=== PATIENT | male | born 1955 | race Caucasian/White ===

== ENCOUNTER 2017-09-29 15:36 | Observation (INO) | payer BC, OTHER ==
[~2017-09-29] VITALS: Ht 170.2 cm; Wt 95.3 kg
[~2017-09-29 15:36] MED LIST: ADVIN25050 INH; EFF375 PO; FLNIN NAE; PRT/20 PO
[2017-09-29] MEDS ORDERED: NITROGLYCERIN 0.4 MG SL PER TAB CHARGE SL STA (15:48)
[2017-09-29] MEDS ORDERED: SODIUM CHLORIDE 0.9% 1000ML 1,000 ML IV STA (15:48)
[2017-09-29] MEDS ORDERED: ASPIRIN 81 MG CHEW PO STA (15:48)
--- NOTE | 2017-09-29 15:57 | EMERGENCY ROOM VISIT NOTE ---
History Report prepared by Radha: Yelena Donahue Under the Supervision of: Dr. Shane Kenyon M.D. First contact with patient: 15:43 Chief Complaint: CHEST PAIN Stated Complaint: CHEST PAIN, LIGHT HEADED History of Present Illness The patient is a 62 year old male who presents to the Emergency Room with complaints of constant chest pain beginning at 1300 today. He describes the pain as dull and rates it as a 3/10 in severity. Pain is located substernally. No radiation of the pain. Patient also reports being lightheaded. No shortness of breath. The patient denies any urinary symptoms or headaches. He denies any recent travel, recent trauma, or smoking. He reports he took his very first blood pressure medication today. His family physician is [facility] Jones. Source of History: patient Onset: 1300 today Position: chest Symptom Intensity: 3/10 Timing: constant Associated Symptoms: No headache, No urinary symptoms Note: Positive lightheadedness. Negative recent travel, recent trauma, or smoking. Negative pain traveling anywhere. Review of Systems See HPI for pertinent positives and negatives. A total of ten systems were reviewed and were otherwise negative. Past Medical & Surgical Medical Problems: (1) Chest pain Family History Stent Social History Smoking Status: Never Smoker Smokeless Tobacco Use: Unknown Current/Historical Medications Scheduled Esomeprazole Magnesium (Nexium), 1 CAP PO DAILY Finasteride (Proscar), 5 MG PO DAILY Fluticasone Propionate (Flonase Nasal [place] *), 2 SPRAYS KEENA DAILY Losartan Potassium (Cozaar), 50 MG PO DAILY Mometasone Furoate-Formoterol (Dulera 100/5 Mcg), 2 PUFFS INH BID Multivitamin (Multivitamin), 1 TAB PO DAILY Allergies Coded Allergies: No Known Allergies (Unverified , 09/29/17) Physical Exam Vital Signs Date Time Temp Pulse Resp B/P (MAP) Pulse Ox O2 Delivery O2 Flow Rate FiO2 09/29/17 18:10 130/80 09/29/17 17:10 123/76 09/29/17 17:06 75 14 100 09/29/17 17:05 111/78 09/29/17 17:00 118/81 09/29/17 16:55 114/79 09/29/17 16:50 121/76 09/29/17 16:45 121/75 09/29/17 16:40 111/73 09/29/17 16:36 81 15 97 09/29/17 16:35 109/74 09/29/17 16:30 106/76 09/29/17 16:29 114/67 09/29/17 16:26 81 16 109/70 94 Nasal Cannula 2.0 09/29/17 16:25 109/70 09/29/17 16:20 104/59 09/29/17 16:20 74 16 104/59 98 Nasal Cannula 2.0 09/29/17 16:19 66 16 86/47 98 Room Air 09/29/17 16:18 68 16 70/41 96 Room Air 09/29/17 16:18 Nasal Cannula 2.0 09/29/17 16:18 86/47 09/29/17 16:17 70/41 09/29/17 16:16 95 20 108/83 92 Room Air 09/29/17 16:15 101 09/29/17 16:15 108/83 09/29/17 16:09 Room Air 09/29/17 16:09 87 16 140/89 09/29/17 16:06 93 19 09/29/17 16:03 140/89 09/29/17 15:43 36.4 96 20 133/78 96 Room Air Physical Exam Physical Exam GENERAL: He is oriented to person, place, and time. He appears well-developed and well-nourished. He does not appear distressed. ____ HENT: Exam performed. Head: Normocephalic and atraumatic. Right Ear: External ear normal. No mastoid tenderness. Left Ear: External ear normal. No mastoid tenderness. Mouth/Throat: The oropharynx is clear and moist. No trismus in the jaw. No dental abscesses or uvula swelling. No oropharyngeal exudate or tonsillar abscesses. ____ EYES: Conjunctivae and EOM are normal. Pupils are equal, round, and reactive to light. Right eye exhibits no discharge. Left eye exhibits no discharge. No scleral icterus. ____ NECK: Normal range of motion. Neck supple. No JVD present. No spinous process tenderness present. No carotid bruit present. No rigidity. No tracheal deviation and normal range of motion present. No Brudzinski's sign and no Kernig 's sign noted. ____ CV: Normal rate, regular rhythm, normal heart sounds and intact distal pulses. There is no peripheral edema. Palpable radial pulses bue. ____ PULM/CHEST: Effort normal and breath sounds normal. No respiratory distress. No stridor. He has no wheezes. He has no rales. Chest Wall: He exhibits no tenderness. ____ ABD: The abdomen is soft. Bowel sounds are normal. He has no distension. No mass is present. There is no tenderness. There is no rebound, no guarding, no Mustafa's sign and no tenderness at McBurney's point. Rovsig negative MUSC/SKEL: Normal range of motion. There is no peripheral edema, tenderness or deformity. LYMPH: No cervical adenopathy. ____ NEURO: He is alert and oriented to person, place, and time. He has normal strength. No cranial nerve deficit or sensory deficit. Coordination and gait normal. GCS eye subscore is 4. GCS verbal subscore is 5. GCS motor subscore is 6. Cerebellar tests wnl. ____ SKIN: Skin is warm and dry. He is not diaphoretic. ____ PSYCH: He has a normal mood and affect. His behavior is normal. Judgment and thought content normal. ____ Medical Decision & Procedures ER Provider Diagnostic Interpretation: Radiology results as stated below per my review and radiologist interpretation: CHEST 2 VIEWS ROUTINE HISTORY: Atypical chest pain. COMPARISON: Chest 10/28/2009. FINDINGS: Mild anterior wedging at T12, unchanged. The lungs are clear. The heart is normal in size. No pleural effusions. No pneumothorax. IMPRESSION: No significant change compared to the prior study. No acute process. Electronically signed by: Froylan Pepoles M.D. 09/29/2017 5:39 PM Dictated Date/Time: 09/29/2017 5:36 PM Laboratory Results 09/29/17 16:15 Red Blood Count 4.95, Mean Corpuscular Volume 88.7, Mean Corpuscular Hemoglobin 32.1, Mean Corpuscular Hemoglobin Concent 36.2, Mean Platelet Volume 9.8, Neutrophils (%) (Auto) 65.7, Lymphocytes (%) (Auto) 23.9, Monocytes (%) (Auto) 8.8, Eosinophils (%) (Auto) 1.3, Basophils (%) (Auto) 0.0, Neutrophils # (Auto) 4.19, Lymphocytes # (Auto) 1.52, Monocytes # (Auto) 0.56, Eosinophils # (Auto) 0.08, Basophils # (Auto) 0.00 09/29/17 16:15 Test 09/29/17 16:15 White Blood Count 6.37 K/uL (4.8-10.8) Red Blood Count 4.95 M/uL (4.7-6.1) Hemoglobin 15.9 g/dL (14.0-18.0) Hematocrit 43.9 % (42-52) Mean Corpuscular Volume 88.7 fL (80-100) Mean Corpuscular Hemoglobin 32.1 pg (25-34) Mean Corpuscular Hemoglobin Concent 36.2 g/dl (32-36) Platelet Count 183 K/uL (130-400) Mean Platelet Volume 9.8 fL (7.4-10.4) Neutrophils (%) (Auto) 65.7 % Lymphocytes (%) (Auto) 23.9 % Monocytes (%) (Auto) 8.8 % Eosinophils (%) (Auto) 1.3 % Basophils (%) (Auto) 0.0 % Neutrophils # (Auto) 4.19 K/uL (1.4-6.5) Lymphocytes # (Auto) 1.52 K/uL (1.2-3.4) Monocytes # (Auto) 0.56 K/uL (0.11-0.59) Eosinophils # (Auto) 0.08 K/uL (0-0.5) Basophils # (Auto) 0.00 K/uL (0-0.2) RDW Standard Deviation 44.6 fL (36.4-46.3) RDW Coefficient of Variation 13.7 % (11.5-14.5) Immature Granulocyte % (Auto) 0.3 % Immature Granulocyte # (Auto) 0.02 K/uL (0.00-0.02) Prothrombin Time 10.0 SECONDS (9.0-12.0) Prothromb Time International Ratio 1.0 (0.9-1.1) Activated Partial Thromboplast Time 25.2 SECONDS (21.0-31.0) Partial Thromboplastin Ratio 1.0 Anion Gap 3.0 mmol/L (3-11) Est Creatinine Clear Calc Drug Dose 91.5 ml/min Estimated GFR () 100.4 Estimated GFR (Non- 86.7 BUN/Creatinine Ratio 23.3 (10-20) Calcium Level 8.8 mg/dl (8.5-10.1) Troponin I < 0.015 ng/ml (0-0.045) Laboratory results reviewed by me Medications Administered Medications (Trade) Dose Ordered Sig/Bertha Route Start Time Stop Time Status Last Admin Dose Admin Nitroglycerin (Nitrostat Tab) 0.4 mg NOW STAT SL 09/29/17 15:48 09/29/17 15:53 DC 09/29/17 15:48 0.4 MG Aspirin (Aspirin Chew) 324 mg NOW STAT PO 09/29/17 15:48 09/29/17 15:53 DC 09/29/17 16:08 324 MG Sodium Chloride 1,000 ml @ 125 mls/hr Q8H STAT IV 09/29/17 15:48 09/29/17 23:47 09/29/17 15:48 125 MLS/HR ECG Per My Interpretation Indication: chest pain Rate (beats per minute): 92 Rhythm: sinus rhythm Findings: other (SC, QRS, QTC all within normal limits, no ST elevation or depression ) Change: Repeat EKG at 1653 shows sinus rhythm, 77, SC, QRS, and QTC within normal limits , no ST elevation or depression ED Course 1547: The patient was evaluated in room C3. A complete history and physical exam was performed. 1548: Ordered Sodium Chloride 1000 ml @ 125 mls/hr IV Aspirin 324 mg PO Nitroglycerin 0.4 mg SL 1615: Status post nitroglycerin administration, the patient states his pain got better but subsequently developed hypotension which was alleviated with an IV drip. 1645: Currently the patients blood pressure has normalized and states the nitroglycerin did take his pain away but now the pain is starting to come back and rates it as a 2/10 in severity. Will hold off on nitroglycerin at this point to avoid repeat transient hypotension. 1815: Vital signs are stable. Labs and I within normal limits. Given the patients age, family medical history, and his medical history, and his resolvent of pain status post 1 sublingual nitro, will admit the patient to rule out ACS . [facility] Hospitalist will further evaluate the patient Medical Decision Vital signs are stable. Labs and I within normal limits. Given the patients age , family medical history, and his medical history, and his resolvent of pain status post 1 sublingual nitro, will admit the patient to rule out ACS . [facility] Hospitalist will further evaluate the patient Medication Reconcilliation Current Medication List: was personally reviewed by me Blood Pressure Screening Patient's blood pressure: Normal blood pressure Blood pressure disposition: Did not require urgent referral Consults Time Called: 1813 Returned Call: [phone] [facility] Hospitalist will further evaluate the patient Impression Primary Impression: Chest pain Scribe Attestation The scribe's documentation has been prepared under my direction and personally reviewed by me in its entirety. I confirm that the note above accurately reflects all work, treatment, procedures, and medical decision making performed by me. The chart was completed utilizing [email or web address] Speech voice recognition software. Grammatical errors, random word insertions, pronoun errors, and incomplete sentences are an occasional consequence of this system due to software limitations, ambient noise, and hardware issues. Any formal questions or concerns about the content, text, or information contained within the body of this dictation should be directly addressed to the physician for clarification. Departure Information Dispostion Being Evaluated By Hospitalist ([facility] Hospitalist ) Referrals Beth Bashir M.D. (PCP) Patient Instructions [facility] Problem Qualifiers Primary Impression: Chest pain Chest pain type: unspecified Qualified Codes: R07.9 - Chest pain, unspecified
[2017-09-29 16:22] LABS: EOS % 1.3 %; EOS ABS # 0.08 K/uL (0-0.5); HEMATOCRIT 43.9 % (42-52); HEMOGLOBIN 15.9 g/dL (14.0-18.0); IG# 0.02 K/uL (0.00-0.02); LYMPH % 23.9 %; LYMPH ABS # 1.52 K/uL (1.2-3.4); MEAN CELL VOLUME 88.7 fL (80-100); MEAN CORPUSCULAR HEMOGLOBIN 32.1 pg (25-34); MEAN CORPUSCULAR HGB CONC 36.2 g/dl (32-36); MEAN PLATELET VOLUME 9.8 fL (7.4-10.4); MONO % 8.8 %; MONO ABS # 0.56 K/uL (0.11-0.59); NEUT % 65.7 %; NEUT ABS # 4.19 K/uL (1.4-6.5); PLATELET COUNT 183 K/uL (130-400); RED CELL DISTRIBUTION WIDTH CV 13.7 % (11.5-14.5); RED CELL DISTRIBUTION WIDTH SD 44.6 fL (36.4-46.3); WHITE BLOOD COUNT 6.37 K/uL (4.8-10.8)
[2017-09-29 16:45] LABS: BLOOD UREA NITROGEN 22 mg/dl (7-18); CALCIUM 8.8 mg/dl (8.5-10.1); CARBON DIOXIDE 26 mmol/L (21-32); CREATININE 0.95 mg/dl (0.60-1.40); GLUCOSE 96 mg/dl (70-99); POTASSIUM 4.2 mmol/L (3.5-5.1); SODIUM 136 mmol/L (136-145)
[2017-09-29] MEDS ORDERED: LOSA50TA6 PO (16:49)
[2017-09-29] MEDS ORDERED: MULT-506 PO (16:49)
[2017-09-29] MEDS ORDERED: FINA5TAB PO (16:49)
--- NOTE | 2017-09-29 17:40 | DIAGNOSTIC IMAGING REPORT ---
CHEST 2 VIEWS ROUTINE HISTORY: Atypical chest pain. COMPARISON: Chest 10/28/2009. FINDINGS: Mild anterior wedging at T12, unchanged. The lungs are clear. The heart is normal in size. No pleural effusions. No pneumothorax. IMPRESSION: No significant change compared to the prior study. No acute process. Electronically signed by: Froylan Peoples M.D. 09/29/2017 5:39 PM Dictated Date/Time: 09/29/2017 5:36 PM
[2017-09-29] MEDS ORDERED: NXM/40 PO (18:38)
[2017-09-29] MEDS ORDERED: MOME100A INH (18:38)
[2017-09-29] MEDS ORDERED: ONDANSETRON INJ 2 MG/ML 2 ML VIAL IV PRN (18:45)
[2017-09-29] MEDS ORDERED: ACETAMINOPHEN 325 MG TAB PO PRN (18:45)
--- NOTE | 2017-09-29 19:13 | History and Physical ---
History & Physical Date & Time of Service: Sep 29, 2017 at 18:59 Chief Complaint: Chest Pain, Light Headed Primary Care Physician: Beth Bashir M.D. History of Present Illness Source: patient, family, clinic records This is a 62 year old male with a past medical history of GERD, depression, prediabetes, hydrocele, recent diagnosis of hypertension - presents with substernal chest pain. States he started Cozaar this morning (first dose) and he felt somewhat dizzy. He sat down and felt better. Later in the day he noted a substernal chest pain, non-radiating, denies shortness of breath; no associated symptoms. Presented to the ER and given SL nitro with some improvement. He developed some hypotension after being given nitro, but now feels better. States he has a family history of cardiac issues; maternal side with multiple coronary issues, paternal side with history of stroke issues. As per , patient is more stressed these days. At one time, patient was taking Paxil, then switched to Effexor, then tapered off. Patient's concerned about depression; patient states he may need a medication to help him with stress. Past Medical/Surgical History Medical Problems: (1) Chest pain Family History Stent Social History Smoking Status: Never Smoker Smokeless Tobacco Use: Unknown Allergies Coded Allergies: No Known Allergies (Unverified , 09/29/17) Home Medications Scheduled Esomeprazole Magnesium (Nexium), 1 CAP PO DAILY Finasteride (Proscar), 5 MG PO DAILY Fluticasone Propionate (Flonase Nasal [place] *), 2 SPRAYS KEENA DAILY Losartan Potassium (Cozaar), 50 MG PO DAILY Mometasone Furoate-Formoterol (Dulera 100/5 Mcg), 2 PUFFS INH BID Multivitamin (Multivitamin), 1 TAB PO DAILY Review of Systems Constitutional: No fever, No chills, No weakness, No fatigue Respiratory: No cough, No sputum, No wheezing, No shortness of breath, No dyspnea on exertion, No dyspnea at rest, No hemoptysis Cardiovascular: + chest pain, No edema, No palpitations Abdomen: No pain, No nausea, No vomiting, No diarrhea, No constipation, No GI bleeding Musculoskeletal: No joint pain, No muscle pain Genitourinary - Male: + problem reported, No hematuria, No dysuria, No urinary frequency, No urinary urgency, No urinary hesitancy Neurologic: No weakness, No numbness/tingling, No vertigo, No balance problems Psychiatric: + depression symptoms, No anxiety, No insomnia Endocrine: No fatigue Hematologic / Lymphatic: No abnormal bleeding/bruising Integumentary: No rash Allergic / Immunologic: No environmental allergies, No seasonal allergies Physical Exam Vital Signs Date Time Temp Pulse Resp B/P (MAP) Pulse Ox O2 Delivery O2 Flow Rate FiO2 09/29/17 18:10 130/80 09/29/17 17:10 123/76 09/29/17 17:06 75 14 100 09/29/17 17:05 111/78 09/29/17 17:00 118/81 09/29/17 16:55 114/79 09/29/17 16:50 121/76 09/29/17 16:45 121/75 09/29/17 16:40 111/73 09/29/17 16:36 81 15 97 09/29/17 16:35 109/74 09/29/17 16:30 106/76 09/29/17 16:29 114/67 09/29/17 16:26 81 16 109/70 94 Nasal Cannula 2.0 09/29/17 16:25 109/70 09/29/17 16:20 104/59 09/29/17 16:20 74 16 104/59 98 Nasal Cannula 2.0 09/29/17 16:19 66 16 86/47 98 Room Air 09/29/17 16:18 68 16 70/41 96 Room Air 09/29/17 16:18 Nasal Cannula 2.0 09/29/17 16:18 86/47 09/29/17 16:17 70/41 09/29/17 16:16 95 20 108/83 92 Room Air 09/29/17 16:15 101 09/29/17 16:15 108/83 09/29/17 16:09 Room Air 09/29/17 16:09 87 16 140/89 09/29/17 16:06 93 19 09/29/17 16:03 140/89 09/29/17 15:43 36.4 96 20 133/78 96 Room Air General Appearance: WD/WN, no apparent distress Head: normocephalic, atraumatic Eyes: normal inspection ENT: normal ENT inspection, hearing grossly normal, TMs normal, pharynx normal Neck: supple Respiratory/Chest: chest non-tender, lungs clear, normal breath sounds, no respiratory distress, no accessory muscle use Cardiovascular: regular rate, rhythm, no edema, no gallop, no JVD, no murmur, normal peripheral pulses Abdomen/GI: normal bowel sounds, non tender, soft Back: normal inspection, no CVA tenderness, no muscle spasm, normal range of motion Extremities/Musculoskelatal: normal inspection, no calf tenderness, normal capillary refill, no pedal edema, normal range of motion Neurologic/Psych: arnp II-XII nml as tested, no motor/sensory deficits, alert, normal mood/affect, normal reflexes, oriented x 3 Skin: normal color, warm/dry, no rash Lymphatic: no adenopathy Diagnostics Laboratory Results Results Past 24 Hours Test 09/29/17 16:15 Range/Units White Blood Count 6.37 4.8-10.8 K/uL Red Blood Count 4.95 4.7-6.1 M/uL Hemoglobin 15.9 14.0-18.0 g/dL Hematocrit 43.9 42-52 % Mean Corpuscular Volume 88.7 80-100 fL Mean Corpuscular Hemoglobin 32.1 25-34 pg Mean Corpuscular Hemoglobin Concent 36.2 32-36 g/dl Platelet Count 183 130-400 K/uL Mean Platelet Volume 9.8 7.4-10.4 fL Neutrophils (%) (Auto) 65.7 % Lymphocytes (%) (Auto) 23.9 % Monocytes (%) (Auto) 8.8 % Eosinophils (%) (Auto) 1.3 % Basophils (%) (Auto) 0.0 % Neutrophils # (Auto) 4.19 1.4-6.5 K/uL Lymphocytes # (Auto) 1.52 1.2-3.4 K/uL Monocytes # (Auto) 0.56 0.11-0.59 K/uL Eosinophils # (Auto) 0.08 0-0.5 K/uL Basophils # (Auto) 0.00 0-0.2 K/uL RDW Standard Deviation 44.6 36.4-46.3 fL RDW Coefficient of Variation 13.7 11.5-14.5 % Immature Granulocyte % (Auto) 0.3 % Immature Granulocyte # (Auto) 0.02 0.00-0.02 K/uL Sodium Level 136 136-145 mmol/L Potassium Level 4.2 3.5-5.1 mmol/L Chloride Level 107 98-107 mmol/L Carbon Dioxide Level 26 21-32 mmol/L Anion Gap 3.0 3-11 mmol/L Blood Urea Nitrogen 22 7-18 mg/dl Creatinine 0.95 0.60-1.40 mg/dl Est Creatinine Clear Calc Drug Dose 91.5 ml/min Estimated GFR () 100.4 Estimated GFR (Non- 86.7 BUN/Creatinine Ratio 23.3 10-20 Random Glucose 96 70-99 mg/dl Calcium Level 8.8 8.5-10.1 mg/dl Troponin I < 0.015 0-0.045 ng/ml Diagnostic Radiology CHEST 2 VIEWS ROUTINE HISTORY: Atypical chest pain. COMPARISON: Chest 10/28/2009. FINDINGS: Mild anterior wedging at T12, unchanged. The lungs are clear. The heart is normal in size. No pleural effusions. No pneumothorax. IMPRESSION: No significant change compared to the prior study. No acute process. EKG Normal sinus rhythm Normal ECG Impression Assessment and Plan This is a 62 year old male with a past medical history of GERD, depression, prediabetes, hydrocele, recent diagnosis of hypertension - presents with substernal chest pain. Chest Pain rule out ACS - risk factors: prediabetes, HTN, family hx. - other possibilities include stress, reflux - EKG with no ST-T wave changes, troponin negative x1 - will trend enzymes, check resting echo - cardiology consultation - outpatient vs. inpatient stress - started on aspirin - check fasting lipid panel HTN - blood pressure labile - hold Cozaar and monitor vitals GERD - takes nexium at home, will give Protonix here Depression - now off of medications - and patient both agree that started medication would be beneficial due to stress - will await cardiac w/up, then perform a PHQ-2 and 9 R sided Hydrocele - outpatient follow-up with Dr. Robledo, urology, on October 05 DVT ppx - Lovenox FULL CODE Resuscitation Status VTE Prophylaxis Will order VTE Prophylaxis: Yes
[2017-09-29] MEDS ORDERED: IV FLUIDS COMPLETED PRN (19:30)
[2017-09-29 20:00] VITALS: BP 146/83; PULSE 77; TEMP 36.4; O2SAT 94; Ht 170.2 cm; Wt 95.3 kg
[2017-09-29 20:00] LABS: PTT PATIENT 25.2 SECONDS (21.0-31.0)
[2017-09-29] MEDS ORDERED: ENOXAPARIN 40 MG/0.4 ML SYR SC SCH (21:00)
[2017-09-29] MEDS ORDERED: SODIUM CHLORIDE 0.9% 1000ML 1,000 ML IV SCH (23:00)
[2017-09-29 23:30] VITALS: BP 134/83; PULSE 71; TEMP 37.1; O2SAT 97
[2017-09-30 03:30] VITALS: BP 126/78; PULSE 76; TEMP 37.1; O2SAT 97
[2017-09-30 06:38] LABS: HEMATOCRIT 44.2 % (42-52); HEMOGLOBIN 15.5 g/dL (14.0-18.0); MEAN CELL VOLUME 89.5 fL (80-100); MEAN CORPUSCULAR HEMOGLOBIN 31.4 pg (25-34); MEAN CORPUSCULAR HGB CONC 35.1 g/dl (32-36); MEAN PLATELET VOLUME 9.8 fL (7.4-10.4); PLATELET COUNT 180 K/uL (130-400); RED CELL DISTRIBUTION WIDTH CV 13.7 % (11.5-14.5); RED CELL DISTRIBUTION WIDTH SD 45.2 fL (36.4-46.3); WHITE BLOOD COUNT 8.03 K/uL (4.8-10.8)
[2017-09-30 07:10] LABS: BLOOD UREA NITROGEN 17 mg/dl (7-18); CALCIUM 8.4 mg/dl (8.5-10.1); CARBON DIOXIDE 25 mmol/L (21-32); CREATININE 0.85 mg/dl (0.60-1.40); GLUCOSE 109 mg/dl (70-99); SODIUM 137 mmol/L (136-145)
[2017-09-30 07:16] LABS: CHOLESTEROL 145 mg/dl (0-200); LDL CHOLESTEROL CALCULATED 82 mg/dl
[2017-09-30 08:38] VITALS: BP 129/88; PULSE 71; O2SAT 96
[2017-09-30] MEDS ORDERED: PANTOprazole SOD 40 MG TAB PO SCH (09:00)
[2017-09-30] MEDS ORDERED: ASPIRIN 81 MG ECTAB PO SCH (09:00)
--- NOTE | 2017-09-30 10:11 | ECHOCARDIOGRAM REPORT ---
*NOTICE TO RECEIVING CONSTITUTION PARTY AGENCY This information is strictly Confidential and protected under [place] law. [place] law prohibits you from making any further disclosure of this information unless further disclosure is expressly permitted by the written consent of the person to whom it pertains or is authorized by law. A general authorization for the release of medical or other information is not sufficient for this purpose. Hospital accepts no responsibility if the information is made available to any other person, INCLUDING THE PATIENT. Interpretation Summary * Name: PA WORLEY Study Date: 09/30/2017 07:44 AM BP: 126/78 mmHg * Patient Location: C.2E\S\E201\S\1 HR: 76 * : 1955 (M/d/yyyy) Gender: Male Height: 67 in * Age: 62 yrs Ethnicity: [place] Weight: 212 lb * Ordering Physician: Phylicia Howe * Referring Physician: Self, Referred * Performed By: Janice Elias RCS * * Reason For Study: CHEST PAIN * BSA: 2.1 m2 * The study was technically adequate. * -- Conclusions -- * There is normal left ventricular wall thickness. * The left ventricular wall motion is normal. * The calculated biplane left ventricular ejection fraction =58% (normal). * Grade I diastolic dysfunction, (abnormal relaxation pattern). * There is no significant valvular heart disease. Procedure Details * A complete two-dimensional transthoracic echocardiogram was performed (2D, M-mode, Doppler and color flow Doppler). Left Ventricle * The left ventricle is normal in size. * There is normal left ventricular wall thickness. * Left ventricular systolic function is normal. * The calcuted biplane left ventricular ejection fraction =58% (normal). * The left ventricular wall motion is normal. Right Ventricle * The right ventricle is normal size. * The right ventricular systolic function is normal as assessed by tricuspid annular plane systolic excursion (TAPSE) (normal >1.5 cm). Atria * The left atrial size is normal. * Right atrial size is normal. * There is no evidence of atrial septal defect, but resolution does not allow assessment for a patent foramen ovale. Mitral Valve * The mitral valve is normal. * There is no mitral valve stenosis. * Significant mitral regurgitation is absent. Tricuspid Valve * The tricuspid valve is normal. * There is no tricuspid stenosis. * Significant tricuspid regurgitation is absent. * Right ventricular systolic pressure is normal. Aortic Valve * The aortic valve is trileaflet. * Aortic stenosis is absent. * There is no significant aortic regurgitation. Pulmonic Valve * The pulmonary valve is not well seen, but the Doppler examination is normal without significant regurgitation or stenosis. Great Vessels * The aortic root and proximal ascending aorta are normal sized. Pericardium/Pleural * There is no pericardial effusion. Great Vessels * Normal inferior vena cava diameter and respiratory variation suggests normal central venous pressure. * Normal inferior vena cava size and collapsability with sniff indicates a normal right atrial pressure of 3 mmHg Left Ventricular Diastolic Function * Grade I diastolic dysfunction, (abnormal relaxation pattern). MMode 2D Measurements and Calculations IVSd 1.1 cm IVSs 1.4 cm LVIDd 3.7 cm LVIDs 2.1 cm LVPWd 1.1 cm LVPWs 1.7 cm IVS/LVPW 1.0 FS 42.7 % EDV(Teich) 58.7 ml ESV(Teich) 14.9 ml EF(Teich) 74.6 % EDV(cubed) 51.3 ml ESV(cubed) 9.6 ml EF(cubed) 81.2 % % IVS thick 31.1 % % LVPW thick 55.5 % LV mass(C)d 126.7 grams LV mass(C)dI 61.1 grams/m\S\2 LV mass(C)s 111.1 grams LV mass(C)sI 53.6 grams/m\S\2 SV(Teich) 43.8 ml SI(Teich) 21.1 ml/m\S\2 SV(cubed) 41.6 ml SI(cubed) 20.1 ml/m\S\2 Ao root diam 3.4 cm Ao root area 9.2 cm\S\2 ACS 1.9 cm LA dimension 3.9 cm asc Aorta Diam 3.1 cm LA/Ao 1.2 EDV(MOD-sp4) 111.0 ml ESV(MOD-sp4) 45.0 ml EF(MOD-sp4) 59.5 % EDV(MOD-sp2) 120.0 ml ESV(MOD-sp2) 52.0 ml EF(MOD-sp2) 56.7 % SV(MOD-sp4) 66.0 ml SI(MOD-sp4) 31.8 ml/m\S\2 SV(MOD-sp2) 68.0 ml SI(MOD-sp2) 32.8 ml/m\S\2 Doppler Measurements and Calculations MV E max remy 85.2 cm/sec MV A max remy 98.7 cm/sec MV E/A 0.86 MV P1/2t max remy 94.9 cm/sec MV P1/2t 57.2 msec MVA(P1/2t) 3.8 cm\S\2 MV dec slope 485.9 cm/sec\S\2 MV dec time 0.22 sec Ao V2 max 163.1 cm/sec Ao max PG 10.6 mmHg Ao max PG (full) 4.5 mmHg LV V1 max PG 6.2 mmHg LV V1 max 124.2 cm/sec PA V2 max 126.8 cm/sec PA max PG 6.4 mmHg TR max remy 217.1 cm/sec
--- NOTE | 2017-09-30 10:38 | Cardiology Consultation ---
Cardiology Consultation Date of Consultation: Sep 30, 2017 History of Present Illness Patient is a 62 year old male seen in cardiology consultation per the request of Dr Howe for the evaluation of chest discomfort. 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 He states he was recently diagnosed with hypertension and his primary care provider, Dr. Bashir had recommended starting losartan 25 mg daily. Yesterday, Sunday, he took the new blood pressure medication for the first time. He proceeded to perform yard work and then washed his spouse's car. He noted dizziness. He then went for a walk with his granddaughter, and felt a mild 2-3/10 intensity chest discomfort. The discomfort continued and occurred even when he was resting and laying flat prompting him to ultimately come to the emergency room. He felt that there was some degree of subjective improvement after the administration of sublingual nitroglycerin. Ultimately he was admitted to the telemetry floor and his symptoms subsided overnight. EKG performed on presentation yesterday at 1653 revealed normal sinus rhythm at 77 bpm with normal repolarization. Repeat EKG performed this morning was once again normal. Resting echocardiogram revealed normal biventricular systolic function and no significant wall motion abnormalities. The left ventricular myocardial thickness was normal. No significant valvular heart disease was noted. Troponin levels have been negative 3. The patient was assessed by the undersigned prior to, during, and post exercise stress echocardiogram. This morning he was free of chest discomfort. Past Medical/Surgical History Problem List: Medical Problems: (1) Chest pain History Social History: Patient is a non-smoker. He lives with his family. Family History: His mother at age 82 with a history of heart and lung disease and had a prior history of cardiac stents. His father in his 70s with history of hypertension and bladder carcinoma Review Of Systems See above for pertinent positives & negatives. A total of 10 systems reviewed and were otherwise negative. Allergies Coded Allergies: No Known Allergies (Unverified , 09/29/17) Medications Reported Home Medications Medications Dose Route/Sig Max Daily Dose Days Date Category Dose Instructions Dulera 100/5 Mcg (Mometasone Furoate-Formoterol) 1 Aer Aer 2 Puffs INH BID 30 09/29/17 Reported Nexium (Esomeprazole Magnesium) 40 Mg Cap 1 Cap PO DAILY 30 09/29/17 Reported Multivitamin (Multivitamins) Tab 1 Tab PO DAILY 09/29/17 Reported Proscar (Finasteride) 5 Mg Tab 5 Mg PO DAILY 09/29/17 Reported Cozaar (Losartan Potassium) 50 Mg Tab 50 Mg PO DAILY 09/29/17 Reported pt just started medication today 09/29/17 Flonase Nasal [place] * (Fluticasone Propionate) Inha 2 Sprays KEENA DAILY 01/21/07 Reported Physical Exam Vital Signs (Last 8hrs): Last 8 Hrs Date Time Temp Pulse Resp B/P (MAP) Pulse Ox O2 Delivery O2 Flow Rate FiO2 09/30/17 08:38 71 16 129/88 (102) 96 Room Air 09/30/17 08:30 Room Air 09/30/17 04:00 Room Air 09/30/17 03:30 37.1 76 17 126/78 (94) 97 Room Air General Appearance: Alert and Oriented x3. NAD. Head: Normocephalic Atraumatic. Eyes: PERRLA, EOMI, conjunctiva and sclera clear Neck: Supple. No carotid bruits noted. No JVD. No HJD. Respiratory: Breath sounds clear to auscultation bilaterally. No w/r/r. Cardiovascular: Reg rate and rhythm. S1 and S2 noted. No murmurs, rubs, gallops. PMI non displace. Abdomen: Normal bowel sounds, soft nontender. no abdominal bruits. Extremities: No edema, no clubbing or cyanosis. distal pulses 2/4 bilaterally. Neuro: No focal deficits. Psychiatric: Normal affect. Data Last 24 Hours Test 09/29/17 16:15 09/30/17 00:08 09/30/17 06:20 White Blood Count 6.37 K/uL 8.03 K/uL Red Blood Count 4.95 M/uL 4.94 M/uL Hemoglobin 15.9 g/dL 15.5 g/dL Hematocrit 43.9 % 44.2 % Mean Corpuscular Volume 88.7 fL 89.5 fL Mean Corpuscular Hemoglobin 32.1 pg 31.4 pg Mean Corpuscular Hemoglobin Concent 36.2 g/dl 35.1 g/dl Platelet Count 183 K/uL 180 K/uL Mean Platelet Volume 9.8 fL 9.8 fL Neutrophils (%) (Auto) 65.7 % Lymphocytes (%) (Auto) 23.9 % Monocytes (%) (Auto) 8.8 % Eosinophils (%) (Auto) 1.3 % Basophils (%) (Auto) 0.0 % Neutrophils # (Auto) 4.19 K/uL Lymphocytes # (Auto) 1.52 K/uL Monocytes # (Auto) 0.56 K/uL Eosinophils # (Auto) 0.08 K/uL Basophils # (Auto) 0.00 K/uL RDW Standard Deviation 44.6 fL 45.2 fL RDW Coefficient of Variation 13.7 % 13.7 % Immature Granulocyte % (Auto) 0.3 % Immature Granulocyte # (Auto) 0.02 K/uL Prothrombin Time 10.0 SECONDS Prothromb Time International Ratio 1.0 Activated Partial Thromboplast Time 25.2 SECONDS Partial Thromboplastin Ratio 1.0 Sodium Level 136 mmol/L 137 mmol/L Potassium Level 4.2 mmol/L 4.0 mmol/L Chloride Level 107 mmol/L 108 mmol/L Carbon Dioxide Level 26 mmol/L 25 mmol/L Anion Gap 3.0 mmol/L 4.0 mmol/L Blood Urea Nitrogen 22 mg/dl 17 mg/dl Creatinine 0.95 mg/dl 0.85 mg/dl Est Creatinine Clear Calc Drug Dose 91.5 ml/min 101.7 ml/min Estimated GFR () 100.4 109.8 Estimated GFR (Non- 86.7 94.7 BUN/Creatinine Ratio 23.3 19.4 Random Glucose 96 mg/dl 109 mg/dl Calcium Level 8.8 mg/dl 8.4 mg/dl Troponin I < 0.015 ng/ml < 0.015 ng/ml < 0.015 ng/ml Triglycerides Level 99 mg/dl Cholesterol Level 145 mg/dl HDL Cholesterol 43 mg/dl LDL Cholesterol, Calculated 82 mg/dl VLDL Cholesterol, Calculated 20 mg/dl Cholesterol/HDL Ratio 3.4 EKG as outlined above. Assessment & Plan Impression: 62-year-old male 1. Chest disc 2. Dizziness Discussion/recommendations: Having had negative EKG 2 negative troponin 3, the patient underwent exercise stress echocardiogram achieving an above average peak workload with no EKG or echo cardiographic evidence of resting or inducible ischemia. His symptoms of chest discomfort were not reproduced. The patient only described an appropriate level of exertional shortness of breath with exercise on the treadmill. Based on the stress test results I do not think the symptoms he was exhibiting or due to angina. Perhaps this is musculoskeletal as he had been raking the day before and was doing some physical exertion activities with the warm spring weather that his muscles were not used to. Regarding his hypertension. He did have some low blood pressure readings while hospitalized with systolic blood pressures in the 100 mmHg range transiently overnight. I offered him 1 of 3 options first of which was to discontinue any further blood pressure medication and refer him back to his primary care provider for reassessment. Second would be to cautiously reintroduce his current dose of losartan in 48 hours, and the third option would be to try different agent, perhaps amlodipine 2.5 mg daily. I would speculate that his borderline low blood pressure was in part due to volume depletion with having been outside in the heat for 2 days. The patient was interested in proceeding with a trial of amlodipine. He is stable for discharge from my standpoint. I would recommend that he waits until Sunday to start the amlodipine 2.5 mg daily. He was counseled to watch out for the potential side effect of lower extremity edema including ankle and shrestha edema. He should follow-up with his primary care provider for ongoing treatment of hypertension. No future cardiology follow-up is necessary at this time unless future concerns arise.
[2017-09-30] MEDS ORDERED: NURSING VERBAL MED ORDER ONE ×2 (11:00)
[2017-09-30 11:53] VITALS: BP 129/76; PULSE 76; TEMP 37; O2SAT 94
--- NOTE | 2017-09-30 11:57 | Progress Note ---
Subjective Date of Service: Sep 30, 2017. Subjective Pt evaluation today including: conversation w/ patient, physical exam, lab review, review of studies, review of inpatient medication list Saw/examined the patient in room 201 had his stress test this morning, no issues to note Denies any chest pain/shortness of breath/palpitations Review of Systems Respiratory: No cough, No sputum, No wheezing, No shortness of breath, No dyspnea on exertion, No dyspnea at rest, No hemoptysis Cardiac: No chest pain, No edema, No palpitations Psychiatric: + depression symptoms Medications Current Inpatient Medications Medications (Trade) Dose Ordered Sig/Bertha Route Start Time Stop Time Status Last Admin Dose Admin Enoxaparin Sodium (Lovenox Inj) 40 mg Q24H SC 09/29/17 21:00 10/29/17 20:59 09/29/17 22:00 40 MG Acetaminophen (Tylenol Tab) 650 mg Q4H PRN PO 09/29/17 18:45 10/29/17 18:44 Ondansetron HCl (Zofran Inj) 4 mg Q6H PRN IV 09/29/17 18:45 10/29/17 18:44 Aspirin (Ecotrin Tab) 81 mg QAM PO 09/30/17 09:00 10/30/17 08:59 09/30/17 08:19 81 MG Pantoprazole Sodium (Protonix Tab) 40 mg DAILY PO 09/30/17 09:00 10/30/17 08:59 09/30/17 08:19 40 MG Miscellaneous Information (Order Awaiting Action) 1 ea QS N/A 09/30/17 00:00 10/30/17 00:00 Miscellaneous (Iv Fluids Completed) 1 ea PRN PRN N/A 09/29/17 19:30 09/29/18 19:29 Objective Vital Signs Date Time Temp Pulse Resp B/P (MAP) Pulse Ox O2 Delivery O2 Flow Rate FiO2 09/30/17 08:38 71 16 129/88 (102) 96 Room Air 09/30/17 08:30 Room Air 09/30/17 04:00 Room Air 09/30/17 03:30 37.1 76 17 126/78 (94) 97 Room Air 09/29/17 23:59 Room Air 09/29/17 23:30 37.1 71 17 134/83 (100) 97 Room Air 09/29/17 20:00 36.4 77 16 146/83 94 Room Air 09/29/17 19:15 75 14 130/80 100 09/29/17 18:10 130/80 09/29/17 17:10 123/76 09/29/17 17:06 75 14 100 09/29/17 17:05 111/78 09/29/17 17:00 118/81 09/29/17 16:55 114/79 09/29/17 16:50 121/76 09/29/17 16:45 121/75 09/29/17 16:40 111/73 09/29/17 16:36 81 15 97 09/29/17 16:35 109/74 09/29/17 16:30 106/76 09/29/17 16:29 114/67 09/29/17 16:26 81 16 109/70 94 Nasal Cannula 2.0 09/29/17 16:25 109/70 09/29/17 16:20 104/59 09/29/17 16:20 74 16 104/59 98 Nasal Cannula 2.0 09/29/17 16:19 66 16 86/47 98 Room Air 09/29/17 16:18 68 16 70/41 96 Room Air 09/29/17 16:18 Nasal Cannula 2.0 09/29/17 16:18 86/47 09/29/17 16:17 70/41 09/29/17 16:16 95 20 108/83 92 Room Air 09/29/17 16:15 101 09/29/17 16:15 108/83 09/29/17 16:09 Room Air 09/29/17 16:09 87 16 140/89 09/29/17 16:06 93 19 09/29/17 16:03 140/89 09/29/17 15:43 36.4 96 20 133/78 96 Room Air Physical Exam General Appearance: no apparent distress Respiratory/Chest: lungs clear, normal breath sounds, no respiratory distress, no accessory muscle use Cardiovascular: regular rate, rhythm, no edema, no murmur Extremities: normal range of motion, non-tender, normal inspection, no pedal edema, no calf tenderness Neurologic/Psychiatric: no motor/sensory deficits, alert, normal mood/affect Laboratory Results Last 24 Hours Test 09/29/17 16:15 09/30/17 00:08 09/30/17 06:20 White Blood Count 6.37 K/uL 8.03 K/uL Red Blood Count 4.95 M/uL 4.94 M/uL Hemoglobin 15.9 g/dL 15.5 g/dL Hematocrit 43.9 % 44.2 % Mean Corpuscular Volume 88.7 fL 89.5 fL Mean Corpuscular Hemoglobin 32.1 pg 31.4 pg Mean Corpuscular Hemoglobin Concent 36.2 g/dl 35.1 g/dl Platelet Count 183 K/uL 180 K/uL Mean Platelet Volume 9.8 fL 9.8 fL Neutrophils (%) (Auto) 65.7 % Lymphocytes (%) (Auto) 23.9 % Monocytes (%) (Auto) 8.8 % Eosinophils (%) (Auto) 1.3 % Basophils (%) (Auto) 0.0 % Neutrophils # (Auto) 4.19 K/uL Lymphocytes # (Auto) 1.52 K/uL Monocytes # (Auto) 0.56 K/uL Eosinophils # (Auto) 0.08 K/uL Basophils # (Auto) 0.00 K/uL RDW Standard Deviation 44.6 fL 45.2 fL RDW Coefficient of Variation 13.7 % 13.7 % Immature Granulocyte % (Auto) 0.3 % Immature Granulocyte # (Auto) 0.02 K/uL Prothrombin Time 10.0 SECONDS Prothromb Time International Ratio 1.0 Activated Partial Thromboplast Time 25.2 SECONDS Partial Thromboplastin Ratio 1.0 Sodium Level 136 mmol/L 137 mmol/L Potassium Level 4.2 mmol/L 4.0 mmol/L Chloride Level 107 mmol/L 108 mmol/L Carbon Dioxide Level 26 mmol/L 25 mmol/L Anion Gap 3.0 mmol/L 4.0 mmol/L Blood Urea Nitrogen 22 mg/dl 17 mg/dl Creatinine 0.95 mg/dl 0.85 mg/dl Est Creatinine Clear Calc Drug Dose 91.5 ml/min 101.7 ml/min Estimated GFR () 100.4 109.8 Estimated GFR (Non- 86.7 94.7 BUN/Creatinine Ratio 23.3 19.4 Random Glucose 96 mg/dl 109 mg/dl Calcium Level 8.8 mg/dl 8.4 mg/dl Troponin I < 0.015 ng/ml < 0.015 ng/ml < 0.015 ng/ml Triglycerides Level 99 mg/dl Cholesterol Level 145 mg/dl HDL Cholesterol 43 mg/dl LDL Cholesterol, Calculated 82 mg/dl VLDL Cholesterol, Calculated 20 mg/dl Cholesterol/HDL Ratio 3.4 Assessment and Plan This is a 62 year old male with a past medical history of GERD, depression, prediabetes, hydrocele, recent diagnosis of hypertension - presents with substernal chest pain. Chest Pain rule out ACS 09/30 - stress test done and negative - unlikely cardiac in nature; possibly musculoskeletal or GERD - will d/c on low dose amlodipine 2.5mg, and stop Cozaar completely 09/29 - risk factors: prediabetes, HTN, family hx. - other possibilities include stress, reflux - EKG with no ST-T wave changes, troponin negative x1 - will trend enzymes, check resting echo - cardiology consultation - outpatient vs. inpatient stress - started on aspirin - check fasting lipid panel HTN - change Cozaar to Amlodipine GERD - takes Nexium at home, will give Protonix here Depression - spoke with patient regarding depression - states his mood changed after stopping SSRI in the past - would like to trial SSRI - will start low dose Lexapro (has had side effects to Paxil) R sided Hydrocele - outpatient follow-up with Dr. Robledo, urology, on October 05 DVT ppx - Lovenox FULL CODE
[2017-09-30] MEDS ORDERED: ASPI-320 PO (12:01)
[2017-09-30] MEDS ORDERED: ESCI1TAB6 PO (12:01)
[2017-09-30] MEDS ORDERED: AMLO2.5T PO (12:01)
--- NOTE | 2017-09-30 12:04 | Discharge Instructions ---
Discharge Instructions Date of Service Sep 30, 2017. Admission Reason for Admission: Chest Pain Discharge Discharge Diagnosis / Problem: Chest Pain, possibly muscloskeletal pain Discharge Goals Goal(s): Decrease discomfort, Improve function, Diagnostic testing, Therapeutic intervention Activity Recommendations Activity Limitations: resume your previous activity . Instructions / Follow-Up Instructions / Follow-Up Please follow-up with Dr. Bashir on October 08 at 11:45AM Please follow-up with Dr. Robledo, urology, on October 05 as scheduled * Stop taking Cozaar and start low dose amlodipine 2.5mg for now for blood pressure; this can be discontinued or increased depending on how your blood pressure is as an outpatient. * You will be started a low dose of Lexapro; follow-up with primary care * You will also be started on aspirin 81mg daily * Like we discussed; the best treatment for the blood pressure and prediabetes is diet and exercise Current Hospital Diet Patient's current hospital diet: AHA Diet (Heart Healthy) Discharge Diet Recommended Diet: AHA Diet (Heart Healthy) Pending Studies Studies pending at discharge: no Laboratory Results Lipid Panel Test 09/30/17 06:20 Range/Units Triglycerides Level 99 0-150 mg/dl Cholesterol Level 145 0-200 mg/dl HDL Cholesterol 43 mg/dl Cholesterol/HDL Ratio 3.4 LDL Cholesterol, Calculated 82 mg/dl Medical Emergencies . Who to Call and When: Medical Emergencies: If at any time you feel your situation is an emergency, please call 911 immediately. . Non-Emergent Contact Non-Emergency issues call your: Primary Care Provider, Urologist . . "Provider Documentation" section prepared by Phylicia Howe. .
--- NOTE | 2017-09-30 12:06 | Discharge Summary ---
Discharge Summary Date of Service Sep 30, 2017. Discharge Summary Admission Date: Sep 29, 2017 at 18:46 Discharge Date: Sep 30, 2017 Discharge Disposition: Home Principal Diagnosis: Chest Pain, likely Musculoskeletal Hypertension Prediabetes Hydrocele Depression Medication Reconciliation New Medications: Amlodipine Besylate (Norvasc) 2.5 Mg Tab 1 TAB PO DAILY for 30 Days, #30 TAB 0 Refills Escitalopram Oxalate (Lexapro) 5 Mg Tab 5 MG PO DAILY for 30 Days, #30 TAB Aspirin (Aspirin EC Low Dose) 81 Mg Ectab 81 MG PO QAM for 30 Days, #30 TABS Continued Medications: Esomeprazole Magnesium (Nexium) 40 Mg Cap 1 CAP PO DAILY for 30 Days, #30 CAP 5 Refills Finasteride (Proscar) 5 Mg Tab 5 MG PO DAILY, TAB Fluticasone Propionate (Flonase Nasal [place] *) Inha 2 SPRAYS KEENA DAILY, 0 Refills Mometasone Furoate-Formoterol (Dulera 100/5 Mcg) 1 Aer Aer 2 PUFFS INH BID for 30 Days, #13 GM 2 Refills Multivitamin (Multivitamin) Tab 1 TAB PO DAILY, TAB Discontinued Medications: Losartan Potassium (Cozaar) 50 Mg Tab 50 MG PO DAILY, TAB pt just started medication today 09/29/17 Admission Information HPI (per Admitting provider): This is a 62 year old male with a past medical history of GERD, depression, prediabetes, hydrocele, recent diagnosis of hypertension - presents with substernal chest pain. States he started Cozaar this morning (first dose) and he felt somewhat dizzy. He sat down and felt better. Later in the day he noted a substernal chest pain, non-radiating, denies shortness of breath; no associated symptoms. Presented to the ER and given SL nitro with some improvement. He developed some hypotension after being given nitro, but now feels better. States he has a family history of cardiac issues; maternal side with multiple coronary issues, paternal side with history of stroke issues. As per , patient is more stressed these days. At one time, patient was taking Paxil, then switched to Effexor, then tapered off. Patient's concerned about depression; patient states he may need a medication to help him with stress. Physical Exam (per Admitting): General Appearance: WD/WN, no apparent distress Head: normocephalic, atraumatic Eyes: normal inspection ENT: normal ENT inspection, hearing grossly normal, TMs normal, pharynx normal Neck: supple Respiratory/Chest: chest non-tender, lungs clear, normal breath sounds, no respiratory distress, no accessory muscle use Cardiovascular: regular rate, rhythm, no edema, no gallop, no JVD, no murmur , normal peripheral pulses Abdomen/GI: normal bowel sounds, non tender, soft Back: normal inspection, no CVA tenderness, no muscle spasm, normal range of motion Extremities/Musculoskelatal: normal inspection, no calf tenderness, normal capillary refill, no pedal edema, normal range of motion 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 Chest Pain rule out ACS 09/30 - stress test done and negative - unlikely cardiac in nature; possibly musculoskeletal or GERD - will d/c on low dose amlodipine 2.5mg, and stop Cozaar completely 09/29 - risk factors: prediabetes, HTN, family hx. - other possibilities include stress, reflux - EKG with no ST-T wave changes, troponin negative x1 - will trend enzymes, check resting echo - cardiology consultation - outpatient vs. inpatient stress - started on aspirin - check fasting lipid panel HTN - change Cozaar to Amlodipine GERD - takes Nexium at home, will give Protonix here Depression - spoke with patient regarding depression - states his mood changed after stopping SSRI in the past - would like to trial SSRI - will start low dose Lexapro (has had side effects to Paxil) R sided Hydrocele - outpatient follow-up with Dr. Robledo, urology, on October 05 DVT ppx - Lovenox FULL CODE Total time spent on discharge = 35 minutes This includes examination of the patient, discharge planning, medication reconciliation, and communication with other providers. Discharge Instructions Please follow-up with Dr. Bashir on October 08 at 11:45AM Please follow-up with Dr. Robledo, urology, on October 05 as scheduled * Stop taking Cozaar and start low dose amlodipine 2.5mg for now for blood pressure; this can be discontinued or increased depending on how your blood pressure is as an outpatient. * You will be started a low dose of Lexapro; follow-up with primary care * You will also be started on aspirin 81mg daily * Like we discussed; the best treatment for the blood pressure and prediabetes is diet and exercise
[2017-09-30 12:18] VITALS: BP 129/76; PULSE 76; TEMP 37; O2SAT 94
--- NOTE | 2017-09-30 14:40 | EXERCISE STRESS ECHO ---
*NOTICE TO RECEIVING DEMOCRAT AGENCY This information is strictly Confidential and protected under [place] law. [place] law prohibits you from making any further disclosure of this information unless further disclosure is expressly permitted by the written consent of the person to whom it pertains or is authorized by law. A general authorization for the release of medical or other information is not sufficient for this purpose. Hospital accepts no responsibility if the information is made available to any other person, INCLUDING THE PATIENT. Interpretation Summary * Name: PA WORLEY Study Date: 09/30/2017 09:49 AM BP: 132/79 mmHg * Patient Location: .2E\S\E201\S\1 HR: 73 * : 1955 (M/d/yyyy) Gender: Male Height: 67 in * Age: 62 yrs Ethnicity: [place] Weight: 212 lb * Ordering Physician: Elvis Cochran * Referring Physician: Self, Referred * Performed By: Janice Elias RCS * * Reason For Study: Chest pain * BSA: 2.1 m2 * -- Conclusions -- * STRESS STUDY: * Normal exercise stress echocardiogram. * No echocardiographic or ECG evidence of myocardial ischemia having achieved heart rate adequate for diagnostic purposes. * No symptoms suggestive of angina were reported with the patient having achieved target heart rate and a peak workload of 10 METs. Procedure Details * ECHOEX, CPT #87429 Left Ventricle * The left ventricular wall motion is normal at rest. * The left ventricular ejection fraction increases normally with stress. The left ventricular end-systolic cavity size reduces post-stress (normal response). The left ventricular wall motion with stress is normal. * No regional wall motion abnormalities noted. Stress Parameters * The baseline ECG displays normal sinus rhythm. * Normal baseline electrocardiogram. * The stress ECG response was normal * No arrhythmia were noted with stress. * The stress portion of this study was personally supervised by the undersigned interpreting physician. * Rest heart rate was '73' BPM. * Rest blood pressure was '132/79' * Maximum heart rate achieved was 146 bpm. * Maximum heart rate was 91 % of maximum age-predicted heart rate. * Maximum blood pressure was '182/77' * Total exercise time was '8:03' * Maximum exercise MET level achieved was '10.1' METS * Maximum treadmill speed was '3.4' miles per hour. * Maximum treadmill elevation was '14'% grade. * Exercise was terminated due to 'achieving target heart rate' * Normal blood pressure response to exercise.
== END 2017-09-30 12:41 | disposition home or self-care (01) ==
LOC: C.EDB 15:37 → C.2E 18:46 → ENRESERV 19:09
PROVIDERS: ADMIT Family Medicine; ATTEND Family Medicine
DX: R07.9 Chest pain, unspecified (principal); R42 Dizziness and giddiness; I10 Essential (primary) hypertension; R73.03 Prediabetes; N43.3 Hydrocele, unspecified; F32.9 Major depressive disorder, single episode, unspecified; K21.9 Gastro-esophageal reflux disease without esophagitis; Z82.49 Family history of ischemic heart disease and other diseases of the circulatory system; Z83.6 Family history of other diseases of the respiratory system; Z80.52 Family history of malignant neoplasm of bladder